=== PATIENT | male | born 1980 | race African-American/Black ===

== ENCOUNTER 2023-03-04 13:45 | Outpatient (RCR) | payer OTHER, SELFPAY ==
--- NOTE | 2023-01-15 15:08 | OT.OP.EVAL ---
Visit Care Team Role Provider Type Lance Ruiz DO Attending Provider Non-Staff Family Provider Primary Care Provider Referring Provider Specialty: Medical Address: [facility] [address] [facility], [place], [address] Email: Occupational Therapy Initial Evaluation OT Outpatient Adult Evaluation Start: 01/15/23 14:38 Freq: Status: Active Protocol: Document 01/15/23 14:38 AMS (Rec: 01/15/23 15:08 AMS [id number]) General Information - Adult Visit Number EVAL CHARGE ONLY; 0/12 visits Plan of Care Dates 01/15/23 - 02/26/23 Insurance Information Prime; EVAL CHARGE ONLY; *Auth 12 visits Visit Start Time 12:30 Visit Stop Time 13:00 Total Visit Minutes 30 Treatment Setting Outpatient Care Note Type Initial Evaluation Identification Confirmed Yes Identification Confirmed By Self; Paras Goals Senior Care Goals 1. Paras will be modified independent with execution of home exercise program utilizing written and visual instructions from therapist as /if needed. 2. Paras will present with increased ability to participate in meaningful activities in a variety of environments; this will be evidenced by the followina. Paras will obtain a QuickDASH UE Outcome Measure Score of 25.00 or less. 2b. Paras will obtain a QuickDASH UE Work Module Score of 25.00 or less. 2c. Paras will indicate 2 or less on the Pain Assessment Grid relative to the R hand/ finger. 3. Paras will present with decreased extensor lag of the R 5th DIPJ of -10 degrees or less. Assessment/Plan Treatment Assessment Paras is a 42 year-old right hand dominant male referred to outpatient OT secondary to prior right distal 5th digit mallet finger w/ continued c/o pain/discomfort. Paras reported that the injury to the 5th digit originally occurred on the basketball court (in August of 2022) and he believed that he had just jammed/sprained the finger; thus, he tried kathy taping the 4th and 5th fingers together. Due to continued pain/discomfort of the 5th digit, he did end up going to Medical in which he was provided a splint which he wore for approximately 6 weeks . He reported taking the splint off this past Wednesday and not wearing it any further . 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 On Pain Assessment Grid, he indicated 4 out of 10 relative to pain/discomfort of the dorsal DIPJ/distal phalanx. He also verbally reported pain/ discomfort w/ palpation of the dorsal 2nd phalanx and proximal to DIPJ. QuickDASH UE Outcome Measure Score = 54.55 ; QuickDASH UE Work Module Score = 50.00. -15 extensor lag noted at DIPJ of 5th digit ; increased extensor lag post- composite flexion. Full passive extension is available at the 5th digit DIPJ. Paras verbalized that he does not want to have surgery and have a pin placed. Recommended that he returned to wearing the splint during the day/night with removal of splint to maintain DIPJ flex, ROM of MP and PIP joints. Recommend follow-up w/ to determine if there is a change in extensor lag w/ return to splint wearing. Length of treatment (weeks) 6 Plan of Care Start Date 01/15/23 Plan of Care End Date 02/26/23 Treatment Frequency Once a Week Therapeutic Contents Active Range of Motion, Functional Activities,Home Exercise Program,Joint Protection,Manual Therapy, Education,Neurodevelopment Treatment,Self-Care,Stretching /Flexibility Activities, Therapeutic Activities, Therapeutic Exercises, Modalities Modalities As Needed,As Prescribed Additional Types of Modalities Heat/Ice/Contrast Baths/ Paraffin bath/Ultrasound
--- NOTE | 2023-02-18 15:38 | OT.OP.TRT ---
Visit Care Team Role Provider Type Lance Ruiz DO Attending Provider Non-Staff Family Provider Primary Care Provider Referring Provider Specialty: Medical Address: [facility], [place], [address] Email: Occupational Therapy Treatment Note OT Outpatient Treatment Note - Adult Start: 01/15/23 14:38 Freq: Status: Active Protocol: Document 02/18/23 15:28 AMS (Rec: 02/18/23 15:37 AMS [id number]) OT Outpatient Adult Treatment Note Session Time Visit Start Time 13:30 Visit Stop Time 13:45 Total Visit Minutes 15 Visit Information Visit Number 03/12 visits Plan of Care Dates 01/15/23 - 02/26/23 Insurance Information Prime; EVAL CHARGE ONLY; *Auth 12 visits Setting Treatment Setting Outpatient Care Visit Type Note Type Treatment Note General Information General Information Paras is a 43 year-old right hand dominant male referred to outpatient OT secondary to prior right distal 5th digit mallet finger w/ continued c/o pain/discomfort. Paras reported that the injury to the 5th digit originally occurred on the basketball court (in August of 2022) and he believed that he had just jammed/sprained the finger; thus, he tried kathy taping the 4th and 5th fingers together. Due to continued pain/discomfort of the 5th digit, he did end up going to Medical in which he was provided a splint which he wore for approximately 6 weeks . He reported taking the splint off this past Wednesday and not wearing it any further . 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 - Subjective Identification Type Name Identification Reconciled With Medical Record Observations Paras presented w/ ' alligator' based splint that his had purchased for him ; (-) signs of extensor lag at the DIPJ at time of treatment session. Report of primarily wearing splint during the day. - Objective Objective Measurements Please refer to below for progress towards meeting established OT goals: Shelter Goals 1. Paras will be modified independent with execution of home exercise program utilizing written and visual instructions from therapist as /if needed. 2. Paras will present with increased ability to participate in meaningful activities in a variety of environments; this will be evidenced by the followina. Paras will obtain a QuickDASH UE Outcome Measure Score of 25.00 or less. 2b. Paras will obtain a QuickDASH UE Work Module Score of 25.00 or less. 2c. Paras will indicate 2 or less on the Pain Assessment Grid relative to the R hand/ finger. 3. Paras will present with decreased extensor lag of the R 5th DIPJ of -10 degrees or less. - - Assessment Assessment of Improvement Paras presented w/ ' alligator' based splint that his had purchased for him ; (-) signs of extensor lag at the DIPJ at time of treatment session. Given that he was seen approximately 5 weeks ago and presents without (-) extensor lag, rec cont w/ night splinting x 2 weeks. Paras verbalized desire to splint during the day versus night; thus, rec day time splinting for at least 2 more weeks. 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 Will need to follow-up in regards to these areas at time of next treatment session. In addition , given that this therapist is not a CHT/clinician who specializes in finger/hand therapy, Paras may benefit from an eval by a CHT. - Plan Therapy Recommendations Advance per Rehabilitation Protocol
--- NOTE | 2023-02-25 14:58 | OT.OP.TRT ---
Visit Care Team Role Provider Type Lance Ruiz DO Attending Provider Non-Staff Family Provider Primary Care Provider Referring Provider Specialty: Medical [facility] [place], [address] Email: Occupational Therapy Treatment Note OT Outpatient Treatment Note - Adult Start: 01/15/23 14:38 Freq: Status: Active Protocol: Document 02/25/23 14:50 AMS (Rec: 02/25/23 14:58 AMS [id number]) OT Outpatient Adult Treatment Note Session Time Visit Start Time 13:30 Visit Stop Time 13:50 Total Visit Minutes 20 Visit Information Visit Number 2/ visits Plan of Care Dates 01/15/23 - 02/26/23 Insurance Information Prime; EVAL CHARGE ONLY; *Auth 12 visits Setting Treatment Setting Outpatient Care Visit Type Note Type Treatment Note General Information General Information Paras is a 43 year-old right hand dominant male referred to outpatient OT secondary to prior right distal 5th digit mallet finger w/ continued c/o pain/discomfort. Paras reported that the injury to the 5th digit originally occurred on the basketball court (in August of 2022) and he believed that he had just jammed/sprained the finger; thus, he tried kathy taping the 4th and 5th fingers together. Due to continued pain/discomfort of the 5th digit, he did end up going to Medical in which he was provided a splint which he wore for approximately 6 weeks . He reported taking the splint off this past Wednesday and not wearing it any further . 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 - Subjective Identification Type Name Identification Reconciled With Medical Record Observations Paras presented w/ ' alligator' based splint that his had purchased for him . (-) sign of extensor lag at the DIPJ at time of treatment session. - Objective Objective Measurements Please refer to below for progress towards meeting established OT goals: Finish Molder Goals 1. Paras will be modified independent with execution of home exercise program utilizing written and visual instructions from therapist as /if needed. 2. Paras will present with increased ability to participate in meaningful activities in a variety of environments; this will be evidenced by the followina. Paras will obtain a QuickDASH UE Outcome Measure Score of 25.00 or less. 2b. Paras will obtain a QuickDASH UE Work Module Score of 25.00 or less. 2c. Paras will indicate 2 or less on the Pain Assessment Grid relative to the R hand/ finger. 3. Paras will present with decreased extensor lag of the R 5th DIPJ of -10 degrees or less. - - Assessment Assessment of Improvement (+) use of alligator splint that was purchased by his ; has presented to last x 2 treatment sessions without signs of extensor lag. Eval approx 6 weeks ago w/ original injury occurring in August of 2022 while playing basketball. Cont to wear splint during work day; rec cont to splint 1 more week w/ reduced wearing schedule (1/2 time day vs night). (+) report of stiffness in the finger w/ wearing of splint; (+) removal of splint to execute tendon glides which seems to help w/ stiffness. Paras reports that he feels that his R program dir is pretty good given the program dir he has attained with grasping of dumbbells, w/ weight lifting. (-) signs of swelling noted. Given that this therapist is not a CHT/ clinician, Paras may benefit from being seen by CHT. - Plan Therapy Recommendations Continue with Current Program, Advance per Rehabilitation Protocol
--- NOTE | 2023-03-04 15:43 | OT.OP.DC ---
Visit Care Team Role Provider Type Lance Ruiz DO Attending Provider Non-Staff Family Provider Primary Care Provider Referring Provider Address: [address] [place] [address], [place], [address] Email: OT Outpatient OT Outpatient Adult Evaluation Start: 01/15/23 14:38 Freq: Status: Active Protocol: Document 01/15/23 14:38 AMS (Rec: 01/15/23 15:08 AMS [id number]) General Information - Adult Visit Information Visit Number EVAL CHARGE ONLY; 0/12 visits Plan of Care Dates 01/15/23 - 02/26/23 Insurance Information Prime; EVAL CHARGE ONLY; *Auth 12 visits Session Time Visit Start Time 12:30 Visit Stop Time 13:00 Total Visit Minutes 30 Setting Treatment Setting Outpatient Care Visit Type Note Type Initial Evaluation Identification Identification Confirmed Yes Identification Confirmed By Self; Paras Goals Detention Goals Detention Goals 1. Paras will be modified independent with execution of home exercise program utilizing written and visual instructions from therapist as /if needed. 2. Paras will present with increased ability to participate in meaningful activities in a variety of environments; this will be evidenced by the followina. Paras will obtain a QuickDASH UE Outcome Measure Score of 25.00 or less. 2b. Paras will obtain a QuickDASH UE Work Module Score of 25.00 or less. 2c. Parsa will indicate 2 or less on the Pain Assessment Grid relative to the R hand/ finger. 3. Paras will present with decreased extensor lag of the R 5th DIPJ of -10 degrees or less. Assessment/Plan Assessment Treatment Assessment Paras is a 42 year-old right hand dominant male referred to outpatient OT secondary to prior right distal 5th digit mallet finger w/ continued c/o pain/discomfort. Paras reported that the injury to the 5th digit originally occurred on the basketball court (in August of 2022) and he believed that he had just jammed/sprained the finger; thus, he tried kathy taping the 4th and 5th fingers together. Due to continued pain/discomfort of the 5th digit, he did end up going to Medical in which he was provided a splint which he wore for approximately 6 weeks . He reported taking the splint off this past Wednesday and not wearing it any further . 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 On Pain Assessment Grid, he indicated 4 out of 10 relative to pain/discomfort of the dorsal DIPJ/distal phalanx. He also verbally reported pain/ discomfort w/ palpation of the dorsal 2nd phalanx and proximal to DIPJ. QuickDASH UE Outcome Measure Score = 54.55 ; QuickDASH UE Work Module Score = 50.00. -15 extensor lag noted at DIPJ of 5th digit ; increased extensor lag post- composite flexion. Full passive extension is available at the 5th digit DIPJ. Paras verbalized that he does not want to have surgery and have a pin placed. Recommended that he returned to wearing the splint during the day/night with removal of splint to maintain DIPJ flex, ROM of MP and PIP joints. Recommend follow-up w/ to determine if there is a change in extensor lag w/ return to splint wearing. Plan Length of treatment (weeks) 6 Plan of Care Start Date 01/15/23 Plan of Care End Date 02/26/23 Treatment Frequency Once a Week Therapeutic Contents Active Range of Motion, Functional Activities,Home Exercise Program,Joint Protection,Manual Therapy, Education,Neurodevelopment Treatment,Self-Care,Stretching /Flexibility Activities, Therapeutic Activities, Therapeutic Exercises, Modalities Modalities As Needed,As Prescribed Additional Types of Modalities Heat/Ice/Contrast Baths/ Paraffin bath/Ultrasound Functional Wrist/Hand Scan Hand Side Sensory Assessment Sensory Profile2 OT Outpatient Treatment Note - Adult Start: 01/15/23 14:38 Freq: Status: Active Protocol: Document 03/04/23 15:31 [facility] (Rec: 03/04/23 15:42 [facility] [id number]) OT Outpatient Adult Treatment Note Session Time Visit Start Time 13:45 Visit Stop Time 14:05 Total Visit Minutes 20 Visit Information Visit Number 3/12 visits Plan of Care Dates 01/15/23 - 02/26/23 Insurance Information Prime; EVAL CHARGE ONLY; *Auth 12 visits Setting Treatment Setting Outpatient Care Visit Type Note Type Treatment Note General Information General Information Praas is a 43 year-old right hand dominant male referred to outpatient OT secondary to prior right distal 5th digit mallet finger w/ continued c/o pain/discomfort. Paras reported that the injury to the 5th digit originally occurred on the basketball court (in August of 2022) and he believed that he had just jammed/sprained the finger; thus, he tried kathy taping the 4th and 5th fingers together. Due to continued pain/discomfort of the 5th digit, he did end up going to Medical in which he was provided a splint which he wore for approximately 6 weeks . He reported taking the splint off this past Wednesday and not wearing it any further . 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 - Subjective Identification Type Name Identification Reconciled With Medical Record Observations Slight extensor lag at the DIPJ (-10 degrees). Patient/Caregiver Compliance with Home Good Exercise Program - Objective Objective Measurements Please refer to below for progress towards meeting established OT goals: Detention Goals D/C from outpatient OT 1. Paras will be modified independent with execution of home exercise program utilizing written and visual instructions from therapist as /if needed. 2. Paras will present with increased ability to participate in meaningful activities in a variety of environments; this will be evidenced by the followina. Paras will obtain a QuickDASH UE Outcome Measure Score of 25.00 or less. 2b. Paras will obtain a QuickDASH UE Work Module Score of 25.00 or less. 2c. Paras will indicate 2 or less on the Pain Assessment Grid relative to the R hand/ finger. 3. Paras will present with decreased extensor lag of the R 5th DIPJ of -10 degrees or less. - - Assessment Assessment of Improvement Eval approx 7 weeks ago w/ original injury occurring in August of 2022 while playing basketball. Reported recent inconsistent wearing of splint w/ slight extensor lag of approx -10 degrees. 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 Rec that Paras monitors extensor lag and wears splint for 1/2 of day + with work/ home life schedule permitting if extensor lag is more significant and/or is impacting meaningful activities. May benefit from charting ext lag/DIP flexion and splint wearing (frequency and duration) on personal calendar (e.g., phone) to obtain further insight/impact on ROM. Rec d/c from outpatient OT andiven that this therapist is not a CHT/ clinician, Paras may likely also benefit from being seen by CHT. - Plan Therapy Recommendations Discharge from Occupational Therapy
== END 2023-03-10 08:44 | disposition home or self-care (01) ==
LOC: OT 13:45
DX: S56.901A Unspecified injury of unspecified muscles, fascia and tendons at forearm level, right arm, initial encounter (principal)
CPT/HCPCS: 97165; 97530

== ENCOUNTER → 2023-12-03 18:16 | Outpatient (CLI) | payer OTHER, SELFPAY ==
--- NOTE | 2023-12-03 18:17 | DI.MRI.S_ITS ---
PROCEDURE: MR KNEE RT WO CON INDICATIONS: RT KNEE W/ROTATIONAL INJURY W/PAIN AND LAXITY TECHNIQUE: Noncontrast sagittal PD fast spin echo and T2 fast spin echo with fat saturation, sagittal 3-D FLASH with fat saturation; coronal T1 spin echo and PD fast spin echo with fat saturation, and axial PD fast spin echo with fat saturation through the knee. COMPARISON: None. FINDINGS: Image quality: Excellent. Menisci: The medial and lateral menisci demonstrate normal morphology and internal signal. The meniscal root ligaments appear intact. Cruciate ligaments: The anterior and posterior cruciate ligaments appear intact. Medial structures: Grade 1 sprain of the MCL. Mild tendinosis of the distal semimembranosus. Lateral structures: The lateral collateral ligament, long and short heads of the biceps femoris tendon appear intact. The popliteus tendon appears normal; the popliteofibular ligament appears intact. The posterosuperior and anteroinferior popliteomeniscal fascicles appear intact. The arcuate and fabellofibular ligaments appear intact, on either side of the lateral inferior geniculate artery. Iliotibial band appears normal. Anterior structures: The quadriceps and patellar tendons appear intact. Patellar alignment is normal. No femoral trochlear dysplasia or ventral trochlear prominence. No edema in the infrapatellar fat pad. Bones and cartilage: Cartilage of the patellofemoral compartment is well maintained. The cartilage of the medial and lateral compartments are well maintained as well. There is mild marrow edema in the nonweightbearing portion of the medial femoral condyle, nonspecific and may represent mild marrow contusion. No acute fracture. Joint space: Trace knee effusion. Trace popliteal cyst. The popliteal vasculature is unremarkable. IMPRESSION: 1. Grade 1 sprain of the MCL. 2. Mild marrow contusion of the nonweightbearing portion of the medial femoral condyle. Dictated by: Oxana Decker M.D. on 12/06/2023 at 10:16 Approved by: Oxana Decker M.D. on 12/06/2023 at 10:23
== END ==
PROVIDERS: Referring Provider Preventive Medicine Aerospace Medicine; Visit Provider Preventive Medicine Aerospace Medicine
DX: S83.411A Sprain of medial collateral ligament of right knee, initial encounter (principal); X58.XXXA Exposure to other specified factors, initial encounter
CPT/HCPCS: 73721